=== PATIENT | female | born 1970 | race Caucasian/White ===

== ENCOUNTER 2017-05-06 21:07 | Emergency (ER) | payer SELFPAY ==
[~2017-05-06 21:07] MED LIST: CIPR500T2 PO; PYRI200T4 PO; Z.0.NO CURRENT MEDS
[2017-05-06 22:00] VITALS: BP 146/72; PULSE 95; RESP 18; O2SAT 97
[2017-05-07 02:00] VITALS: BP 115/57; PULSE 80; RESP 18; O2SAT 97
[2017-05-07] MEDS ORDERED: IBUPROFEN 600 MG TAB PO ONE (03:15)
[2017-05-07] MEDS ORDERED: hydrOXYzine PAMOATE 25 MG CAP PO ONE (03:15)
[2017-05-07 06:00] VITALS: BP 174/86; PULSE 91; RESP 18; O2SAT 94
[2017-05-07 11:19] VITALS: BP_SYST 170; BP_SYST 95; BP_DIAS 18; BP_DIAS 84; PULSE 95; RESP 18; O2SAT 95
[2017-05-07] MEDS ORDERED: CLON0.2T PO (14:55)
--- NOTE | 2017-05-07 17:05 | PD ---
History of Present Illness Chief Complaint: Psychiatric Symptoms Time Seen by Provider: 14:45 Travel History International Travel<30 Days: No Contact w/Intl Traveler<30days: No Known affected area: No Legal Status Legal Status: Involuntary Adame Act Signed By: Mo Adame Act Comment: CERTIFICATE OF PROFESSIONAL INITIATING INVOLUNTARY EXAMINATION05/06/17@1900 History of Present Illness: 46-year-old female presented with history of opiate abuse. Patient is looking for detox and rehabilitation. [facility] is the designated receiving facility for this patient's physician certificate. However, [facility] as once again they have reported being full for days. Patient is not suicidal or homicidal. Her cognition is intact and she is not psychotic. She is verbally yael for safety and she would like to go home. As this facility is not license for alcohol or drug detox and rehabilitation, the patient is being discharged home. She is verbally yael for safety. She was instructed to call [facility] every morning, early, looking for a bed if she is interested in pursuing detox and rehabilitation. PFSH Past Medical History Anxiety: Yes Depression: Yes Diminished Hearing: No Tubal Ligation: Yes Psychiatric History Psychiatric History Hx Psychiatric Treatment: DEPRESSION/ ANXIETY History of Inpatient Treatment: No Guns or firearms in home: No Social History Hx Alcohol Use: No Hx Tobacco Use: Yes Hx Substance Use: Yes (heroine 1 and 1/2 days ago) Substance Use Type: Heroin Hx of Substance Use Treatment: No Allergies-Medications (Allergen,Severity, Reaction): Coded Allergies: No Known Allergies (Verified , 05/06/17) Reported Meds & Prescriptions Reported Meds & Active Scripts Active Clonidine (Clonidine HCl) 0.2 Mg Tab 0.2 Mg PO Q6HR Pyridium (Phenazopyridine HCl) 200 Mg Tab 200 Mg PO TID 5 Days Ciprofloxacin Hcl 500 Mg Tab 500 Mg PO BID Reported No Current Meds (Miscellaneous Medication) Misc Review of Systems Except as stated in HPI: all other systems reviewed are Neg Exam Alert: Yes [place]: Person, Place, Date, Situation Mood: Calm Affect: Appropriate Speech: Clear Eye Contact: Normal Memory Intact: Immediate, Recent, Remote Insight/Judgement Adequate MDM Medical Decision Making Medical Record Reviewed: Yes Assessment/Plan Patient is being discharged because she does not meet criteria for Adame act or inpatient psychiatric hospitalization. She is unable to obtain treatment at [facility] at this time. She would like to go home and least restrictive alternative applies. She is verbally yael for safety. She is competent to make these decisions. Orders Psych Screen (05/06/17 22:54) Diet Regular Basic (05/07/17 Breakfast) Ibuprofen (Motrin) (05/07/17 03:15) Hydroxyzine Pamoate (Vistaril) (05/07/17 03:15) Diet Regular Basic (05/07/17 Lunch) Results Vital Signs Date Time Temp Pulse Resp B/P Pulse Ox O2 Delivery O2 Flow Rate FiO2 05/07/17 11:19 95 18 170/84 95 05/07/17 06:00 91 18 174/86 94 Room Air 05/07/17 02:00 80 18 115/57 97 Room Air 05/06/17 22:00 95 18 146/72 97 Room Air Diagnosis Primary Impression: Opiate abuse, episodic Departure Forms: Tests/Procedures Patient Instructions: General Instructions, Clonidine (By mouth), Opioid Dependence (ED), Medical Clearance for Psychiatric Care (ED) Additional Instructions: Follow up with outpatient primary care provider. Follow up with outpatient Psychiatric Act [phone]. Return to ER if symptoms worsen. Prescriptions Clonidine 0.2 Mg Tab0.2 Mg PO Q6HR #60 TAB Ref 0 Prov:Josh Mcfadden MD 05/07/17 Disposition: 01 DISCHARGE HOME Condition: Stable Josh Mcfadden MD May 07, 2017 17:05
== END 2017-05-07 17:01 | disposition home or self-care (01) ==
LOC: NEPJ 21:07
DX: F11.10 Opioid abuse, uncomplicated (principal); F32.9 Major depressive disorder, single episode, unspecified; F41.9 Anxiety disorder, unspecified; Z72.0 Tobacco use; Z79.899 Other long term (current) drug therapy
CPT/HCPCS: 80053; 80307; 81001; 83690; 84484; 84702; 85025; 93005; 96360; 96374; 99284; 99285; J2060; J7030; Q0177